=== PATIENT | male | born 1945 | race Caucasian/White ===

== ENCOUNTER 2020-06-25 04:23 | Day surgery (SDC) | payer OTHER, BC ==
[2020-06-23 10:59] VITALS: BMI 34.9
[2020-06-25] MEDS ORDERED: LIDOCAINE HCL 1%, 10 MG/ML (20ML VIAL) ONE (07:25)
[2020-06-25] MEDS ORDERED: DEXAMETHASONE SOD PHOSPHATE 4 MG/1 ML VIAL ONE (07:25)
[2020-06-25] MEDS ORDERED: BUPIVACAINE HCL/PF 0.25% (2.5MG/ML) 10 ML VIAL ONE (07:26)
[2020-06-25] MEDS ORDERED: BETAMET ACET/BETAMET NA PH 30 MG/5 ML VIAL ONE (07:26)
--- NOTE | 2020-06-25 11:05 | HP ---
Admitting History and Physical - Admission Chief Complaint: Low back and B/L Thigh pain History of Present Illness: The patient complains of B/L LEg pain when standing for long periods of time and has lumbar spinal stenosis with neurogenic claudication. History Source: Patient Limitations to Obtaining History: No Limitations - Smoking History Smoking history: Never smoked Have you smoked in the past 12 months: No - Alcohol/Substance Use Hx Alcohol Use: No Home Medications - Allergies Allergies/Adverse Reactions: Allergies Allergy/AdvReac Type Severity Reaction Status Date / Time No Known Drug Allergies Allergy Verified 06/23/20 10:51 - Home Medications Home Medications: Ambulatory Orders Alfuzosin HCl [Uroxatral] 10 mg PO BID 07/03/14 Aspirin [ASA -] 81 mg PO DAILY 07/03/14 Atorvastatin Ca [Lipitor -] 40 mg PO HS 07/03/14 Lisinopril [Prinivil] 20 mg PO DAILY 07/03/14 Oxybutynin Chloride 10 mg PO DAILY 07/03/14 Atorvastatin Ca [Lipitor] 40 mg PO HS 06/23/20 Empagliflozin [Jardiance] 10 mg PO DAILY 06/23/20 Sitagliptin Phosphate [Januvia -] 100 mg PO DAILY@0700 06/23/20 Review of Systems - Review of Systems Constitutional: reports: No Symptoms Eyes: reports: No Symptoms HENT: reports: No Symptoms Neck: reports: No Symptoms Cardiovascular: reports: No Symptoms Respiratory: reports: No Symptoms Gastrointestinal: reports: No Symptoms Genitourinary: reports: No Symptoms Breasts: reports: No Symptoms Reported Musculoskeletal: reports: No Symptoms, Back Pain Neurological: reports: Other (neurogenic claudication) Endocrine: reports: No Symptoms Hematology/Lymphatic: reports: No Symptoms Psychiatric: reports: No Symptoms Physical Examination Vital Signs: Vital Signs Temperature 97.0 F L 06/25/20 09:41 Pulse Rate 65 06/25/20 09:41 Respiratory Rate 20 06/25/20 09:41 Blood Pressure 161/80 06/25/20 09:41 O2 Sat by Pulse Oximetry (%) 97 06/25/20 09:41 Constitutional: Yes: Well Nourished, No Distress, Calm Eyes: Yes: WNL, Conjunctiva Clear, EOM Intact HENT: Yes: WNL, Atraumatic, Normocephalic Neck: Yes: WNL, Supple, Trachea Midline Cardiovascular: Yes: Regular Rate and Rhythm Respiratory: Yes: CTA Bilaterally Gastrointestinal: Yes: WNL Musculoskeletal: Yes: Back Pain Neurological: Yes: Alert, Other (claudication) Psychiatric: Yes: WNL, Alert, Oriented Imaging - Results MRI: Report Reviewed, Image Reviewed
[2020-06-25] MEDS ORDERED: DEXAMETHASONE SOD PHOSPHATE 10 MG/1 ML VIAL IVPUSH ONE (11:22)
[2020-06-25] MEDS ORDERED: LIDOCAINE 1% P/F 10 MG/ML VIAL INF ONE (11:22)
[2020-06-25] MEDS ORDERED: IOHEXOL 180 MG/1 ML ML IJ ONE (11:24)
[2020-06-25 12:31] VITALS: BP 142/79; PULSE 58; TEMP 98.2
--- NOTE | 2020-06-29 09:08 | PROC ---
Procedure Note Procedure: Pre procedure Diagnosis: Lumbar radiculopathy Post Procedure Diagnosis: same Anesthesia: local Procedure Performed: Caudal Epidural Steroid Injection under Fluoroscopic Guidance After the risks and benefits were explained, informed consent was obtained. The patient was then taken to the procedure room and positioned prone on the procedure table. Time out was performed. Caudal space/ sacral cornu was identified using fluoroscopy. The skin was prepped and draped in the usual sterile fashion. The skin and soft tissues were anesthetized using 1% lidocaine. Under intermittent fluoroscopic guidance, a #25 gauge 1.5 inch hypodermic was successfully directed into the posterior epidural space at the sacral cornu using a posterior approach. Needle placement was then confirmed with the injection of Omnipaque 180. Epidural flow was noted and no vascular uptake was noted. A 5 cc cocktail of and 2 cc Dexamethasone 10 mg/mL and 2 cc of 1% lidocaine was then injected at the site. The patients response was again monitored and sensorimotor examination remained unchanged. The patient tolerated the procedure well and there were no complications. The patient was taken to the post procedure recovery area in good condition. Vital signs remained stable before, and after the procedure. The patient was given oral follow-up instructions. The patient was given a follow up appointment with me in the near future. Baljit Posey DO
== END 2020-06-25 12:10 | disposition home or self-care (01) ==
LOC: JASU-SURG 04:23
PROVIDERS: ATTEND Pain Medicine Pain Medicine
PROC: 3E0R33Z Introduction of Anti-inflammatory into Spinal Canal, Percutaneous Approach (ICD-10-PCS; 2020-06-25)
PROC: 3E0R3BZ Introduction of Anesthetic Agent into Spinal Canal, Percutaneous Approach (ICD-10-PCS; principal; 2020-06-25 11:00)
DX: M54.16 Radiculopathy, lumbar region (principal)
CPT/HCPCS: J1100

== ENCOUNTER 2020-07-16 04:59 | Day surgery (SDC) | payer OTHER, BC ==
[2020-07-15 12:47] VITALS: BMI 31.8
[2020-07-16] MEDS ORDERED: LIDOCAINE HCL/PF 1% SDV 5ML VIAL ONE (12:57)
--- NOTE | 2020-07-16 13:03 | PROC ---
Procedure Note Procedure: Pre procedure Diagnosis: Thoracic spondylosis Post Procedure Diagnosis: same Anesthesia: local Procedure Performed: Right T10 T11 T12 thoracolumbar medial branch blocks After the risks and benefits were explained, informed consent was obtained. The patient was then taken to the procedure room and positioned prone on the procedure table. Time out was performed. The region overlying the appropriate vertebral bodies was identified using fluoroscopy. The skin was prepped and draped in the usual sterile fashion. Using fluoroscopic guidance, 25 gauge 2.5 inch spinal needles were then introduced to the juntion of the transverse process and superior articulating process of the thoracic vertebra where the RIGHT T10 T11 T12 medial branches are located. Omnipaque 180 confirmed appropriate needle placement. There was no epidural or vascular flow observed. .75 % bupivacaine was drawn into a syringe. 0.5cc of this solution was then injected at each level. The same procedure was repeated on the LEFT side at the same levels. The patient tolerated the procedure well and there were no complications. The p atient was taken to the post procedure recovery area in good condition. Vital signs remained stable before, during, and after the procedure. The patient was given oral and written follow-up instructions. The patient was given a follow up appointment with me in the near future. Baljit Posey DO
--- NOTE | 2020-07-16 13:05 | HP ---
Admitting History and Physical - Admission Chief Complaint: Right Thoracic back pain History of Present Illness: The patient complains of right thoracic back pain History Source: Patient - Smoking History Smoking history: Never smoked Have you smoked in the past 12 months: No - Alcohol/Substance Use Hx Alcohol Use: No Home Medications - Allergies Allergies/Adverse Reactions: Allergies Allergy/AdvReac Type Severity Reaction Status Date / Time No Known Drug Allergies Allergy Verified 07/16/20 12:22 - Home Medications Home Medications: Ambulatory Orders Alfuzosin HCl [Uroxatral] 10 mg PO BID 07/03/14 Aspirin [ASA -] 81 mg PO DAILY 07/03/14 Atorvastatin Ca [Lipitor -] 40 mg PO HS 07/03/14 Lisinopril [Prinivil] 20 mg PO DAILY 07/03/14 Oxybutynin Chloride 10 mg PO DAILY 07/03/14 Atorvastatin Ca [Lipitor] 40 mg PO HS 06/23/20 Empagliflozin [Jardiance] 10 mg PO DAILY 06/23/20 Sitagliptin Phosphate [Januvia -] 100 mg PO DAILY@0700 06/23/20 Review of Systems - Review of Systems Constitutional: reports: No Symptoms Eyes: reports: No Symptoms HENT: reports: No Symptoms Neck: reports: No Symptoms Cardiovascular: reports: No Symptoms Respiratory: reports: No Symptoms Gastrointestinal: reports: No Symptoms Genitourinary: reports: No Symptoms Musculoskeletal: reports: Back Pain Integumentary: reports: No Symptoms Neurological: reports: No Symptoms Endocrine: reports: No Symptoms Hematology/Lymphatic: reports: No Symptoms Psychiatric: reports: No Symptoms Physical Examination Vital Signs: Vital Signs Temperature 98 F 07/16/20 12:20 Pulse Rate 69 07/16/20 12:20 Respiratory Rate 14 07/16/20 12:20 Blood Pressure 120/63 07/16/20 12:20 O2 Sat by Pulse Oximetry (%) 96 07/16/20 12:20 Constitutional: Yes: No Distress, Calm Eyes: Yes: Conjunctiva Clear, EOM Intact HENT: Yes: Atraumatic, Normocephalic Neck: Yes: Trachea Midline Cardiovascular: Yes: Regular Rate and Rhythm Respiratory: Yes: Regular Gastrointestinal: Yes: WNL Musculoskeletal: Yes: Back Pain Extremities: Yes: WNL Neurological: Yes: WNL ...Motor Strength: WNL Imaging - Results X-ray: Report Reviewed, Image Reviewed MRI: Report Reviewed, Image Reviewed Assessment/Plan The patients pain is secondary to right thoracic spondylosis. 1. I will perform diagnostic right thoracic medial branch blocks at T10 T11 T12 Medial branches.
[2020-07-16] MEDS ORDERED: LIDOCAINE 1% P/F 10 MG/ML VIAL PNB ONE (13:44)
[2020-07-16] MEDS ORDERED: IOHEXOL 180 MG/1 ML ML IJ ONE (13:44)
[2020-07-16] MEDS ORDERED: BUPIVACAINE HCL/PF 0.75% 10 ML VIAL PNB ONE (13:44)
[2020-07-16 14:18] VITALS: TEMP 98.8
[2020-07-16 14:31] VITALS: BP 150/80; PULSE 55
== END 2020-07-16 14:31 | disposition home or self-care (01) ==
LOC: JASU-SURG 04:59
PROVIDERS: ATTEND Pain Medicine Pain Medicine
PROC: 3E0T33Z Introduction of Anti-inflammatory into Peripheral Nerves and Plexi, Percutaneous Approach (ICD-10-PCS; 2020-07-16)
PROC: 3E0T3BZ Introduction of Anesthetic Agent into Peripheral Nerves and Plexi, Percutaneous Approach (ICD-10-PCS; principal; 2020-07-16 12:00)
DX: M47.894 Other spondylosis, thoracic region (principal); M54.6 Pain in thoracic spine
CPT/HCPCS: 76000-TC-FY